=== PATIENT | male | born 1980 | race Caucasian/White ===

== ENCOUNTER 2016-05-09 07:45 | Outpatient (CLI) | payer MEDICAID | END 2016-05-09 07:46 | disposition home or self-care (01) | DX: M23.42 Loose body in knee, left knee (principal); M25.462 Effusion, left knee ==

== ENCOUNTER 2020-07-10 11:22 | Outpatient (CLI) | payer SELFPAY ==
--- NOTE | 2020-07-10 13:17 | Ultrasound Report ---
PROCEDURE: Ext Limited Non Vascular INDICATIONS: SWOLLEN MASS L UPPER ARM TECHNIQUE: Real-time scanning was performed of the left upper arm, with image documentation. COMPARISON: None. FINDINGS: Focus ultrasound examination in left mid upper arm anterior aspect shows 18 x 8 x 11 mm complex hypoe choic area in the region of left cephalic vein with patent cephalic vein proximal and distal to this region. No other soft tissue mass or fluid collection is seen. IMPRESSION: Finding is suggestive of 18 x 8 x 11 mm hematoma adjacent to left cephalic vein with mas s effect causing narrowing of the vein at this level. The proximal and distal portion of left cephali c vein is patent. Reviewed by: Chapo Stein MD on 07/10/2020 1:16 PM PDT Approved by: Chapo Stein MD on 07/10/2020 1:16 PM PDT Station ID: [id number]
== END 2020-07-10 11:23 | disposition home or self-care (01) ==
LOC: DI 11:22
PROVIDERS: ATTEND Physician Assistant Medical
DX: M67.922 Unspecified disorder of synovium and tendon, left upper arm (principal)

== ENCOUNTER 2021-07-15 10:54 | Emergency (ER) | payer SELFPAY ==
[2021-07-15 12:24] LABS: BASOPHILS % (AUTO) 0.5 %; EOSINOPHILS # (AUTO) 0.3 10^3/uL (0.0-0.7); EOSINOPHILS % (AUTO) 3.4 %; HCT - HEMATOCRIT 46.8 % (42.0-52.0); HGB - HEMOGLOBIN 16.8 g/dL (14.0-18.0); LYMPHOCYTES % (AUTO) 25.5 %; MEAN CORPUSCULAR HEMOGLOBIN 33.9 pg (27.0-31.0); MEAN CORPUSCULAR HGB CONC 35.9 g/dL (32.0-36.0); MEAN CORPUSCULAR VOLUME 94.4 fL (80.0-94.0); MEAN PLATELET VOLUME 11.5 fL (7.4-11.4); MONOCYTES # (AUTO) 0.7 10^3/uL (0.0-1.0); MONOCYTES % (AUTO) 9.1 %; NEUTROPHILS # (AUTO) 4.8 10^3/uL (1.5-6.6); NEUTROPHILS % (AUTO) 61.1 %; PLT - PLATELET COUNT 229 10^3/uL (130-450); RED BLOOD COUNT 4.96 10^6/uL (4.70-6.10); WHITE BLOOD COUNT 7.9 x10^3/uL (4.8-10.8)
--- NOTE | 2021-07-15 12:32 | ED Physician Documentation ---
History of Present Illness - Stated complaint Stated Complaint: MALE - Chief complaint Chief Complaint: Abd Pain - History obtained from History obtained from: Patient - History of Present Illness Timing: How many days ago (2-3) Pain level max: 5 Pain level now: 1 - Additonal information Additional information: Patient is a 40-year-old male who presents to the emergency department with 2 to 3 days of right testicular pain. He describes it as dull and aching. Seems to be worse with standing, better with sitting. He states that he has had no changes in sexual partners. No penile discharge. No STD exposure. Has not felt any swelling. Has not had any skin changes. He states the testicles feel normal. Review of Systems Constitutional: denies: Fever, Chills Throat: denies: Sore throat Cardiac: denies: Chest pain / pressure Respiratory: denies: Cough GI: denies: Nausea, Vomiting, Diarrhea Skin: denies: Rash Musculoskeletal: denies: Neck pain, Back pain Neurologic: denies: Headache PD PAST MEDICAL HISTORY - Past Medical History Past Medical History: No - Past Surgical History Past Surgical History: No - Present Medications Home Medications: Ambulatory Orders Medication Instructions Recorded Confirmed No Known Home Medications 07/15/21 07/15/21 - Allergies Allergies/Adverse Reactions: Allergies Allergy/AdvReac Type Severity Reaction Status Date / Time No Known Drug Allergies Allergy Verified 07/15/21 11:20 - Living Situation Living Arrangement: reports: At home - Social History Does the pt smoke?: Yes Does the pt have substance abuse?: No - Family History Family history: reports: Non contributory PD ED PE NORMAL - Vitals Vital signs reviewed: Yes - General General: Alert and oriented X 3, No acute distress - HEENT HEENT: PERRL - Cardiac Cardiac: RRR, Strong equal pulses - Respiratory Respiratory: No respiratory distress, Clear bilaterally - Abdomen Abdomen: Soft, Non tender, Non distended - Male Male : Other (Mild tenderness over the right epididymis. Normal testicular lie and contour. Otherwise normal examination) - Derm Derm: Warm and dry - Extremities Extremities: No edema - Neuro Neuro: Alert and oriented X 3 - Psych Psych: Normal mood, Normal affect Results - Vitals Vitals: Vital Signs - 24 hr 07/15/21 11:16 Temperature 36.4 C L Heart Rate 77 Respiratory 16 Rate O2 Saturation 98 Oxygen O2 Source Room air - Labs Labs: Laboratory Tests 07/15/21 07/15/21 12:18 12:18 WBC 7.9 RBC 4.96 Hgb 16.8 Hct 46.8 MCV 94.4 H MCH 33.9 H MCHC 35.9 RDW 12.0 Plt Count 229 MPV 11.5 H Neut # (Auto) 4.8 Lymph # (Auto) 2.0 [place] # (Auto) 0.7 Eos # (Auto) 0.3 Baso # (Auto) 0.0 Absolute Nucleated RBC 0.00 Nucleated RBC % 0.0 Sodium 141 Potassium 4.2 Chloride 102 Carbon Dioxide 29 Anion Gap 10.0 BUN 14 Creatinine 1.2 Estimated GFR (MDRD) 67 L Glucose 92 Calcium 9.8 Total Bilirubin 0.5 AST 52 H ALT 90 H Alkaline Phosphatase 69 Total Protein 7.5 Albumin 4.6 Globulin 2.9 Albumin/Globulin Ratio 1.6 Lipase 41 - Rads (name of study) testicular US Radiology: Final report received, EMP read contemporaneously, See rad report PD MEDICAL DECISION MAKING - ED course Complexity details: reviewed results, re-evaluated patient, considered differential, d/w patient ED course: 40-year-old male with right-sided testicular pain. Found to have small bilateral hydroceles, larger on the right and has some internal debris. No torsion or testicular mass. Has a left-sided varicocele as well. No urinary symptoms. Patient states that he has not had any new sexual partners for at least 6 months. No discharge. No evidence of epididymitis. Likely that he was having pain from the hydrocele. Upon further recollection he does recall having this pain several times throughout his life. These episodes usually spontaneously resolve within a few days. We will have him follow-up with urology for further care. Patient counseled regarding signs and symptoms for which I believe and urgent re-evaluation would be necessary. Patient with good understanding of and agreement to plan and is comfortable going home at this time This document was made in part using voice recognition software. While efforts are made to proofread this document, sound alike and grammatical errors may occur. IMPRESSION: Small bilateral hydroceles, larger on the right and with internal debris. No findings of torsion or testicular mass. Moderate left varicocele. Departure - Departure Disposition: 01 Home, Self Care Clinical Impression: Hydrocele in adult Condition: Good Instructions: ED Hydrocele Type Not Specified Follow-Up: May Waldron MD [Provider Admit Priv/Credential] - Jeremías sEteban MD [Physician No Access] - Radha Wilson MD [Physician No Access] - Comments: You appear to have a hydrocele on your testicle, this is likely causing your pain. This is a fluid-filled sac. I would recommend that you follow-up with urology for further care. Return if you worsen. You can use Motrin or Tylenol as needed for pain. IMPRESSION: Small bilateral hydroceles, larger on the right and with internal debris. No findings of torsion or testicular mass. Moderate left varicocele. Discharge Date/Time: 07/15/21 15:00
[2021-07-15 12:37] LABS: ALBUMIN 4.6 g/dL (3.2-5.5); ALBUMIN/GLOBULIN RATIO 1.6 (1.0-2.2); BILIRUBIN,TOTAL 0.5 mg/dL (0.2-1.0); CALCIUM 9.8 mg/dL (8.5-10.3); CREATININE 1.2 mg/dL (0.6-1.2); POTASSIUM 4.2 mmol/L (3.5-5.0); TOTAL PROTEIN 7.5 g/dL (6.7-8.2)
--- NOTE | 2021-07-15 14:07 | Ultrasound Report ---
PROCEDURE: Testicle w/Doppler INDICATIONS: R testicular pain TECHNIQUE: Real-time scanning was performed of the scrotum and testicles, with image documentation. Color and p ulse Doppler interrogation was performed of both testicles. COMPARISON: None. FINDINGS: Both testicles normal in size and appearance with no intratesticular mass or abnormal testicular echo texture. Normal and symmetric blood flow within both testicles. There is a moderate left varicocele. Bilateral hydroceles, small but larger on the right with internal mobile debris. IMPRESSION: Small bilateral hydroceles, larger on the right and with internal debris. No findings of torsion or testicular mass. Moderate left varicocele. Reviewed by: Dioni Norris MD on 07/15/2021 2:06 PM PDT Approved by: Dioni Norris MD on 07/15/2021 2:06 PM PDT Station ID: [id number]
== END 2021-07-15 15:00 | disposition home or self-care (01) ==
LOC: ED 10:54
DX: N43.3 Hydrocele, unspecified (principal); I86.1 Scrotal varices
CPT/HCPCS: 36415; 80053; 83690; 85025; 93975; 99282; 99284